=== PATIENT | female | born 1960 | race Caucasian/White ===

== ENCOUNTER 2021-03-06 12:43 | Outpatient (REF) | payer OTHER, SELFPAY ==
[2021-03-06 13:52] LABS: Alanine Aminotransferase 27 U/L (0-31); Albumin Level 4.8 g/dL (3.5-5.0); Alkaline Phosphatase 70 U/L (39-117); Aspartate Amino Transferase 25 U/L (5-31); Bilirubin Direct < 0.2 mg/dL (0.0-0.5); Bilirubin Total 0.3 mg/dL (0.0-1.0); Lipase 39 U/L (8-78)
[2021-03-06 13:54] LABS: Amylase 57 U/L (28-100)
[2021-03-08 13:46] LABS: Immunoglobulin A 59 mg/dL (47-310)
[2021-03-08 16:31] LABS: Transglutaminase Ab IgG <1.0 U/mL; Transglutaminase IgA <1.0 U/mL
[2021-03-09 06:46] LABS: Gliadin Deamidated IgG Ab <1.0 U/mL
[2021-03-10 10:00] LABS: Carbohydrate Antigen 19-9 12 U/mL (<34)
[2021-03-13 12:32] LABS: Endomysial IgA Antibody Negative (Negative)
== END 2021-03-06 12:44 | disposition home or self-care (01) ==
LOC: HO.LAB 12:43
PROVIDERS: PCP Family Medicine; Visit Provider Internal Medicine
DX: K86.2 Cyst of pancreas (principal); K58.8 Other irritable bowel syndrome
CPT/HCPCS: 36415; 80076; 82150; 82784; 83690; 86231; 86258; 86301; 86364

== ENCOUNTER 2024-10-25 11:58 | Emergency (ER) | payer OTHER, SELFPAY ==
--- NOTE | ~2024-10-25 | US_ITS ---
CLINICAL HISTORY: Left thigh pain. DVT? Venous duplex ultrasound left lower extremity Comparison: None provided Findings: The visualized deep veins are fully compressible with normal Doppler color flow and spectral tracings. No popliteal cyst. IMPRESSION: 1. Negative for left lower extremity deep vein thrombosis. This document has been electronically signed by: Deep Hzd DO on 10/25/2024 14:09:08
--- NOTE | ~2024-10-25 | XR_ITS ---
CLINICAL HISTORY: left hip thigh pain 3 view, pelvis and left hip Comparison: None provided Findings: No acute fracture or dislocation. Mild degenerative changes of both hips. The soft tissues are unremarkable. IMPRESSION: Mild degenerative changes of both hips. This document has been electronically signed by: Deep Hdz DO on 10/25/2024 13:47:13
[2024-10-25 12:10] VITALS: BP 153/77; PULSE 76; RESP 20; TEMP 37.1; O2SAT 98; BMI 24.4
--- NOTE | 2024-10-25 12:14 | ED.GENADULT ---
HPI - General Adult General Chief complaint: Extremity Injury, Lower Stated complaint: groin pain into l leg Time Seen by Provider: 10/25/24 12:34 Source: patient Mode of arrival: ambulatory Limitations: no limitations History of Present Illness ED Provider: HPI narrative: 64-year-old woman, healthy presenting with left-sided hip pain for the last 4 days started with exercise, she is otherwise very active, no fevers or chills, pain radiating into her thigh. No swelling. Related Data Allergies Allergy/AdvReac Type Severity Reaction Status Date / Time levofloxacin (From LEVAQUIN) Allergy Unknown RASH Unverified 10/25/24 12:15 sulfamethoxazole (From Allergy Heartburn Verified 10/25/24 12:15 Bactrim) trimethoprim (From Bactrim) Allergy Heartburn Verified 10/25/24 12:15 Review of Systems Constitutional: Constitutional: Reports as per [facility] Social History Social History (System 02/21/21 @ 08:58 by Aurea Rhoades) Smoked in Last 30 Days: No Use of substances other than those prescribed or required for medical reasons: Yes Substance Use Type: Marijuana Advance Directives: No Advance Directives Information Provided: No Physical Exam ED Vital Signs: Vital Signs - 24 hr 10/25/24 12:10 10/25/24 13:47 Temperature 98.7 F Pulse Rate 76 80 Respiratory Rate 20 18 Blood Pressure 153/77 H 133/63 Pulse Oximetry 98 96 Oxygen Delivery Method Room Air Room Air BMI result Body Mass Index 24.4 Const Other: Gen: ?Overall well-appearing patient Resp: ?No wheezing rales rhonchi no stridor moving air well Abd: ?Bowel sounds are present, no tenderness no rebound no rigidity MSK: FROM, strength 5/5 all extremities, no lower extremity edema, distal pulses intact Skin: Warm, dry, intact, Neuro: ?Alert and oriented x3, moving upper and lower extremities symmetrically, no obvious facial asymmetry noted Course Course Course Narrative: RME: 64 yold female presents to the ED for left hip/thigh/groin pain for the past 4 days. Patient states walking a lot and now having hip thigh pain that is worse on movement. Patient denies any recent blunt trauma, swelling, dysuria, hematuria, flank pain, fever, chills, back pain abdominal pain nausea or vomiting. Labs imaging ultrasound ordered Medical Decision Making Medical Decision Making [facility] Narrative: Patient is very active, presenting with left-sided hip pain exercises quite a bit for many years, physical examination otherwise reassuring, she had an ultrasound done to evaluate for any presence of any DVT, x-ray on my evaluation reveals early arthritic changes bilaterally Differential Diagnosis Differential Diagnoses: The differential diagnosis associated with the presentation includes (Bursitis, arthritis, fracture, DVT, cellulitis) Lab Data [facility] Lab Attestation statement: I reviewed the patient's lab results. 10/25/24 12:19 10/25/24 12:19 Labs: Lab Results 10/25/24 10/25/24 Range/Units 12:19 14:25 WBC 6.3 (4.8-10.8) X10*3/uL RBC 4.50 (4.20-5.50) X10*6/uL Hgb 13.7 (12.0-16.0) g/dl Hct 41.2 (37.0-47.0) % MCV 91.6 (80.0-98.0) fL MCH 30.4 (27.0-33.0) pg MCHC 33.3 (31.0-35.0) g/dl RDW 12.3 (11.0-16.0) % Plt Count 217 (160-400) X10*3/uL MPV 10.1 (9.4-12.3) fL Immature Gran % (Auto) 0.2 (0.0-0.4) % Neut % (Auto) 58.9 (45-73) % Lymph % (Auto) 26.8 (20-40) % Josephine % (Auto) 10.0 (2-11) % Eos % (Auto) 2.7 (0-4) % Baso % (Auto) 1.4 (0-2) % Lymph # (Auto) 1.7 (1.2-4.9) X10*3/uL Josephine # (Auto) 0.6 (0.1-1.2) X10*3/uL Eos # (Auto) 0.2 (0.0-0.4) X10*3/uL Baso # (Auto) 0.1 (0.0-0.2) X10*3/uL Abs Immat Gran (auto) 0.01 (0.00-0.03) X10*3/uL Absolute Neuts (auto) 3.7 (2.0-8.3) x10*3/uL Absolute Nucleated RBC 0.000 (0.0-0.012) X10*3/uL Nucleated RBC % (auto) 0.0 (0.0-0.2) /100WBC Sodium 144 (135-145) mmol/L Potassium 3.4 (3.3-5.1) mmol/L Chloride 107 (96-108) mmol/L Carbon Dioxide 29 (22-29) mmol/L Anion Gap 11 L (12-20) BUN 18 H (9-16) mg/dL Creatinine 0.83 (0.5-1.4) mg/dL Estim Creat Clear Calc 72.4 Estimated GFR > 60 Random Glucose 76 (60-115) mg/dL Calcium 9.4 (8.4-10.2) mg/dL Total Bilirubin 0.4 (0.0-1.0) mg/dL AST 21 (5-31) U/L ALT 16 (0-31) U/L Alkaline Phosphatase 85 (39-117) U/L Total Creatine Kinase 114 (26-140) U/L Total Protein 6.8 (6.5-8.0) g/dL Albumin 4.6 (3.5-5.0) g/dL Urine Color Yellow Urine Appearance Clear Urine pH 7.5 (5.0-9.0) Ur Specific [place] <= 1.005 (1.005-1.025) Urine Protein Negative (Neg-Trace) mg/dL Urine Glucose (UA) Negative (Negative) mg/dL Urine Ketones Negative (Negative) mg/dL Urine Blood Negative (Negative) Urine Nitrite Negative (Negative) Ur Leukocyte Esterase Trace H (Negative) Urine RBC 0-2 (0-2) /HPF Urine WBC 0-5 (0-5) /HPF Ur Squamous Epith Cells 0-2 (0-2) /HPF Urine Bacteria None Seen (None Seen) Hyaline Casts 0-2 (0-2) /LPF Independent Interpretation I performed an independent interpretation of an: Plain X-Ray (Some loss of joint space, sclerosing, early arthritic changes bilaterally) Radiology Impression Discussion of test interpretation with radiology: I have reviewed the radiologist's reading. (. Negative for left lower extremity deep vein thrombosis.) Discharge Plan Discharge Clinical Impression: Hip pain, left, Arthritis of left hip Patient Disposition: Home, Self-Care Additional Instructions: Mild arthritic changes bilaterally in your hips, ultrasound negative for blood clots we discussed various homeopathic approaches to this issue. Interventions: ED Discharge Assessment Last Done: 10/25/24 14:48 Discharge Date/Time: 10/25/24 14:49 Print Language: Malawian
[2024-10-25 12:24] LABS: MANUAL DIFF FLAG NO
[2024-10-25 12:25] LABS: Hematocrit 41.2 % (37.0-47.0); Hemoglobin 13.7 g/dl (12.0-16.0); Imm Gran Abs Auto 0.01 X10*3/uL (0.00-0.03); Imm Gran Pct Auto 0.2 % (0.0-0.4); Lymphocytes Absolute Auto 1.7 X10*3/uL (1.2-4.9); Mean Corpuscular HGB Conc 33.3 g/dl (31.0-35.0); Mean Corpuscular Hemoglobin 30.4 pg (27.0-33.0); Mean Corpuscular Volume 91.6 fL (80.0-98.0); NRBC Abs Auto 0.000 X10*3/uL (0.0-0.012); NRBC Pct Auto 0.0 /100WBC (0.0-0.2); Platelet Count 217 X10*3/uL (160-400); Red Blood Count 4.50 X10*6/uL (4.20-5.50); White Blood Count 6.3 X10*3/uL (4.8-10.8)
--- OUTSIDE RECORDS SUMMARY | 2024-10-25 12:31 | XMS_ITS | Patient Health Record ---
Author Organization [facility] Address [address] [place] [id number] Care Team Providers Care Acid Conditioner Name Role Phone Leena West APRN Primary Care Provider [phone] Genet Alejo Unavailable [phone] Allergies Allergen (clinical drug ingredient) Drug/Non Drug Allergy documented on EMR Reaction Allergy Type Onset Date Status dust mites, grass, dogs, cats, mold, lobster (uncoded) asthma, watery eyes, runny nose Allergy Active Reason For Referral No Information Problems Problem Type SNOMED Code ICD Code Onset Dates Problem Status W/U Status Risk Notes Problem Vitamin D deficiency (65033155) Vitamin D deficiency, unspecified (E55.9) Active confirmed Problem Vitamin deficiency (42607561) Vitamin deficiency, unspecified (E56.9) Active confirmed Problem Generalized anxiety disorder (18129400) Generalized anxiety disorder (F41.1) Active confirmed Problem Insomnia (097537646) Insomnia, unspecified (G47.00) Active confirmed Problem Dental caries (33904546) Dental caries, unspecified (K02.9) Active confirmed Problem Myalgia (81354454) Myalgia (M79.1) Active confirmed Problem Pain in limb (99056268) Pain in arm, unspecified (M79.603) Active confirmed Problem Pain in limb (36208088) Pain in leg, unspecified (M79.606) Active confirmed Problem Menopause (782718977) Menopausal and female climacteric states (N95.1) Active confirmed Problem Chest pain (42619463) Other chest pain (R07.89) Active confirmed Problem Headache (15106320) Headache (R51) Active confirmed Problem Fatigue (39073006) Other fatigue (R53.83) Active confirmed Problem Jaw pain (689148168) Jaw pain (R68.84) Active confirmed Problem Irritable bowel syndrome (51642004) Mixed irritable bowel syndrome (K58.2) Active confirmed Plan Of Treatment Pending Test Test Name Order Date THYROID PEROXIDASE AND THYROGLOBULIN ANT IBODIES 10/01/2017 GGT 10/01/2017 CBC (H/H, RBC, INDICES, WBC, PLT) 2017 LYME DISEASE ANTIBODIES (IGG,IGM), IMMUN OBLOT 10/01/2017 CHANELL IFA SCREEN W/REFL TO TITER AND RICARDO VIRGEN, IFA 10/01/2017 HS CRP 10/01/2017 DHEA SULFATE 10/01/2017 T4, FREE 10/01/2017 TSH 10/01/2017 T3, FREE 10/01/2017 SEX HORMONE BINDING GLOBULIN 10/01/2017 TESTOSTERONE, FREE,BIO AND TOTAL, LC/MS/ MS 10/01/2017 PREGNENOLONE, LC/MS/MS 10/01/2017 CBC WITH AUTOMATED DIFF 10/08/2017 Medical (General) History Medical History History ICD Code Opioid addiction Chronic mouth pain Joint pain Headaches asthma-triggered by allergie s; rarely uses inhaler; denies past hospitalization 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
--- OUTSIDE RECORDS SUMMARY | 2024-10-25 12:31 | XMS_ITS | Clinical Summary ---
Author Organization [facility] Address [address] [place] [address] Phone Care Team Providers Care Bit Sander Name Role Phone Leandra Gonzalez Primary Care Provider [phone] Allergies Active Allergy Reactions Criticality Noted Date Comments Sulfamethoxazole-Trimethoprim Palpitations Low 06/25 Cyclobenzaprine 08/19/2024 Gemfibrozil 08/19/2024 Hydroxyzine 08/19/2024 Levofloxacin 03/03/2017 Niacin Rash Low 08/19/2024 Medications No known medications Active Problems Problem Noted Date Diagnosed Date Jaw pain 07/13/2020 Assessment & Plan (07/13/2020 11:52 AM EDT): It is unclear why patient is here. The patient was sent by her primary care physician (I thought) at the patient's request for question of actinomycosis. She brought no x-rays or x-ray reports, no reports from a dentist, and the DNA connect report that she brought is not a test that I am familiar with. The patient walked out during our visit, frustrated that I was not familiar with the report that she brought. In addition the jaw pain that she had complained of for many years she now says is minimal. Of note is the fact that actinomycese is part of normal mouth jarret and is only considered problematic if associated with abscess or other deep and chronic infections. Although I was not able to complete our visit or perform an oral exam, given that she no longer has jaw pain, I think serious actinmycotic infection is very unlikely. Encounters Date Type Department Care Team Description 08/19/2024 2:50 PM EDT Office Visit [facility] [address] [address] Carey Ruvalcaba FNP Infection, wound status post trauma (Primary Dx) from Last 3 Months Immunizations Immunization Administration Dates Next Due INFLUENZA, SPLIT VIRUS, TRIVALENT W/ PRESERVATIV E IM 12/13/2013 Social History Tobacco Use Types Packs/Day Years Used Date Smoking Tobacco: Every Day Smokeless Tobacco: Never Alcohol Use Standard Drinks/Week Comments No 0 (1 standard drink = 0.6 oz pur e alcohol) Education Answer Date Recorded Are you interested in more education? Not on aura e 06/21/2022 Are you concerned about learning? Not on file 06/21/2022 No 06/21/2022 No 06/21/2022 Digital Access Answer Date Recorded No 07/22/2022 No 07/22/2022 Reliable internet access at home? Not on file 07/22/2022 Device with a working camera? Not on file Comments No Sex and Gender Information Value Date Recorded Sex Assigned at Female 03/23/2017 1:36 PM EST Legal Sex Female 9:46 PM EDT Gender Identity Female 03/23/2017 1:36 PM EST Sexual Orientation Straight 03/23/2017 1: 36 PM EST Last Filed Vital Signs Vital Sign [place] Time Taken Comments Blood Pressure 129/72 08/19/2024 3:00 PM EDT Pulse 59 08/19/2024 3:00 PM EDT Temperature 36.8 C (98.3 F) 08/19/2024 3:00 PM EDT Respiratory Rate 16 08/19/2024 3:00 PM EDT Oxygen Saturation 97% 08/19/2024 3:00 PM EDT Inhaled Oxygen Concentration - - Weight 74.8 kg (165 lb) 01/14/2021 9:34 AM EST Height 167.6 cm (5' 6 ) 01/14/2021 9:34 AM EST Body Mass Index 26.63 01/14/2021 9:34 AM EST Plan of Treatment Health Maintenance Due Date Last Done Comments Adult Td,Tdap Booster 1961 DEPRESSION SCREENING 1973 SMOKING Hx and SMOKELESS TOB ACCO SCREENING 1974 HEPATITIS C SCREENING 1979 HIV ONE-TIME SCREENING (18-6 5 YEARS) 1979 PNEUMOCOCCAL VACCINES (50+ y ears) (1 of 2 - PCV) 1980 PAP SMEAR 1982 MAMMOGRAM 2001 COLOGUARD 2006 COLONOSCOPY 2006 COLORECTAL CANCER SCREENING 2006 FIT TEST 2006 FOBT 2006 SIGMOIDOSCOPY 2006 VIRTUAL COLONOSCOPY 2006 ZOSTER VACCINES (1 of 2) 2011 COVID-19 VACCINE (1 - 2023-2 5 season) 2023 LIPID PANEL 06/03/2025 06/03/2020 RSV VACCINE (1 - 1-dose 75+ series) 2036 HEPATITIS A VACCINES Aged Out No long er eligible based on patient's age to complete this topic HIB VACCINES Aged Out No longer eligi ble based on patient's age to complete this topic MENINGOCOCCAL VACCINES (ACWY) Aged Out No longer eligible based on patient's age to complete this topic MENINGOCOCCAL VACCINES (B) Aged Out N o longer eligible based on patient's age to complete this topic Medical Devices Not on file Procedures Procedure Name Priority Date/Time Associated Diagnosis Comments LIPID PANEL Routine 06/03/2020 11:48 AM EDT Actinomycosis, unspecified Diarrhea, unspecified type from Last 3 Months or Most Recently Relevant to Health Maintenance Results * (ABNORMAL) Lipid panel (06/03/2020 11:48 AM EDT) HDL 67 mg/dL [facility] Comment: Interpretation <40 mg/dL: Low HDL cholesterol (major risk factor for CHD) Greater than or equal to 60 mg/dL: High HDL cholesterol ( negative risk factor for CHD) HDL - cholesterol is affected by a number of factors, e.g. smoking, excerise, hormones, sex and age. CHOLESTEROL 212 0 - 240 mg/dL [facility] TRIGLYCERIDES 82 30 - 160 mg/dL [facility] LDL 129 50 - 129 mg/dL [facility] Comment: LDL levels in terms of risk for coronary heart disease: <100 mg/dL: Optimal 100-129 mg/dL: Near or above optimal 130-159 mg/dL: Borderline high 160-189 mg/dL: High >190 mg/dL: Very High CARDIAC RISK RATIO 3.2(L) 3.3 - 4.4 C [facility] Blood 06/03/2020 11:4 8 AM EDT 06/03/2020 11:58 AM EDT Joseph Bhandari MD LAB BLOOD ORDERABLES Final Result [facility] [address] [place] [address] from Last 3 Months or Most Recently Relevant to Health Maintenance Insurance [facility] Member Subscriber Plan / Payer (Ef fective 2016-Present) Name:Selene Solomon Relation to Subscriber:Spouse Name:COOPER SOLOMONREY Date of :1900 (Home) Address: [address] [place] [id number] Payer ID:Not on file Type:HMO Address: [address] [id number] [place], [place] [address] [facility] [id number] [place], [place] [address] Member Subscriber Plan / Payer (Ef fective 2016-Present) Name:Selene Solomon Relation to Subscriber:Spouse Name:RAHAT SOLOMON Date of :1900 (Home) Address: [address] [place], [place] [id number] Payer ID:Not on file Type:HMO Address: [address] [facility] [id number] [place], [place] [address] Member Subscriber Plan / Payer (Ef fective 2016-Present) Name:Selene Solomon Relation to Subscriber:Spouse Name:RAHAT SOLOMON Date of :1900 (Home) Address: [address] [place] [address] Payer ID:Not on file Type:HMO Address: [address] [facility] Member Subscriber Plan / Payer (Ef fective 2016-Present) Name:Selene Solomon Relation to Subscriber:Spouse Name:RAHAT SOLOMON Date of :1900 (Home) Address: [address] [place] [id number] Payer ID:Not on file Type:HMO Address: [address] [facility] Member Subscriber Plan / Payer (Ef fective 2016-Present) Name:Selene Solomon Relation to Subscriber:Spouse Name:RAHAT SOLOMON Date of :1900 (Home) Address: [address] [place] [id number] Payer ID:Not on file Type:HMO Address: [address] Care Teams Bit Sander Relationship Specialty Start Date End Date Leandra Gonzalez PA [address] [place] [address] (work) [email or web address] PCP - General Physician Front Counter Clerk 08/19/24 Additional Source Comments The information contained in this document represents components of the legal health record. It is not the complete legal health record.[facility]
--- OUTSIDE RECORDS SUMMARY | 2024-10-25 12:31 | XMS_ITS | Encounter Summary ---
Author Organization [facility] Address [address] [facility] [address] [place] [phone] Phone Care Team Providers Care Big Data Admin Name Role Phone Andrew Lopes MD Primary Care Provider [phone] Renaldo Gray DO Primary Care Provider [phone] Joseph Bhandrai MD Primary Care Provider [phone] Marco A Ortega MD Primary Care Provide r Leandra Gonzalez Primary Care Provider [phone] Encounter Details Date Type Department Care Team (Late st Contact Info) Description 10/12/2019 Procedure [facility], [address] [address] Social History Tobacco Use Types Packs/Day Years Used Date Smoking Tobacco: Every Day Smokeless Tobacco: Never Alcohol Use Standard Drinks/Week Comments No 0 (1 standard drink = 0.6 oz pur e alcohol) Comments Unknown Sex and Gender Information Value Date Recorded Sex Assigned at Female 03/23/2017 1:36 PM EST Legal Sex Female 9:46 PM EDT Gender Identity Female 03/23/2017 1:36 PM EST Sexual Orientation Straight 03/23/2017 1: 36 PM EST documented as of this encounter Last Filed Vital Signs Vital Sign [place] Time Taken Comments Blood Pressure - - Pulse - - Temperature - - Respiratory Rate - - Oxygen Saturation - - Inhaled Oxygen Concentration - - Weight 64.9 kg (143 lb) 10/14/2019 5:08 PM EDT Height 170.2 cm (5' 7 ) 10/14/2019 5:08 PM EDT Body Mass Index 22.4 10/14/2019 5:08 PM EDT documented in this encounter Plan of Treatment Not on file documented as of this encounter Visit Diagnoses Not on filedocumented in this encounter Care Teams Big Data Admin Relationship Specialty Start Date [place] [address] [email or web address] PCP - General Internal Medicine 11/26/18 10/12/19 Renaldo Gray DO [address] [place] [id number] [email or web address] PCP - General Family Medicine 10/13/19 05/31/20 Joseph Bhandari MD [address] [address] [email or web address] PCP - General 06/01/20 10/24/20 Marco A Ortega MD [address] [address] PCP - General Family Medicine 10/25/20 08/18/24 Leandra Gonzalez PA [address] [place] [email or web address] PCP - General Physician Care Clinician 08/19/24 documented as of this encounter Additional Source Comments The information contained in this document represents components of the legal health record. It is not the complete legal health record.[facility]
--- OUTSIDE RECORDS SUMMARY | 2024-10-25 12:31 | XMS_ITS | Encounter Summary ---
Author Organization [facility] Address [address] [facility] [address] [place] [phone] Phone Care Team Providers Care Load Tallier Name Role Phone Marco A Ortega MD Primary Care Provide r Leandra Gonzalez Primary Care Provider [phone] Encounter Details Date Type Department Care Team (Late st Contact Info) Description 01/16/2021 Ancillary Orders [facility],Outside Imaging [address] [place] [address] System, Provider Not In, [facility] [address] [address] Social History Tobacco Use Types Packs/Day Years [...] PM EST documented as of this encounter Plan of Treatment Not on file documented as of this encounter Results * CT Abdomen/Pelvis Outside (No Interpretation) (11/08/2020 12:00 AM EDT) Narrative SYSTEMGENERATED, DOCUMENTATION - 01/16/2021 7:15 AM EST This study is for PACS storage only and not for interpretation. us Provider Not In System PhD IMG OUTSIDE IMAGING W /OUT INTERPRETATION Final Result documented in this encounter Visit Diagnoses Not on filedocumented in this encounter Care Teams Load Tallier Relationship Specialty Start Date End Date Marco A Ortega MD [address] [address] PCP - General Family Medicine 10/25/20 08/18/24 Leandra Gonzalez PA [address] [place] [phone] [email or web address] PCP - General Physician Waste Disposal Attendant 08/19/24 documented as of this encounter Additional Source Comments The information contained in this document represents components of the legal health record. It is not the complete legal health record.[facility]
--- OUTSIDE RECORDS SUMMARY | 2024-10-25 12:31 | XMS_ITS | Encounter Summary ---
Author Organization [facility] Address [address] [facility] [address] [place] [address] Phone Care Team Providers Care Shop Girl Name Role Phone Andrew Lopes MD Primary Care Provider [phone] Andrew Lopes MD Primary Care Provider [phone] Renaldo Gray DO Primary Care Provider [phone] Joseph Bhandari MD Primary Care Provider [phone]- [phone] Marco A Ortega MD Primary Care Provide r Leandra Gonzalez Primary Care Provider [phone] Reason for Referral * MRI/CAT Scan - Closed Specialty Diagnoses / Procedures Referred By Contairam gunn Referred To Contact Radiology Diagnoses Atheroma Intractable migraine without status migrainosus, unspecified migraine type Seizures Procedures MRI Angio Brain Gilberto Enriquez MD Phone: tel: fax: mailto:[email or web address] Referral ID Status Reason Start Date Expiration Date Visits Re quested Visits Authorized [id number] Closed 05/06/2017 07/05/2017 1 1 Encounter Details Date Type Department Care Team (Late st Contact Info) Description 05/06/2017 Ancillary Orders [facility] Department [address] [place] [address] Gilberto Enriquez MD [address] [place] [address], [address] [place] [address] [email or web address] Atheroma; Intractable migraine without status migrainosus, unspecified migraine type; Seizures Social History Tobacco Use Types Packs/Day Years [...] documented as of this encounter Results * MRA HEAD WITHOUT CONTRAST (05/15/2017 7:26 PM EDT) Anatomical Region Laterality Modality Head Magnetic Resonan ce 05/15/2017 8:31 PM EDT Impressions 05/15/2017 8:37 PM EDT No aneurysm detected. No significant narrowing. POS - [id number] Narrative 05/15/2017 8:37 PM EDT HISTORY: As above. COMPARISON: None TECHNIQUE: Exam performed on 1.5 Nisa high-field MRI scanner. Axial 3-D [id number] MR angiogram. Source raw data and angiographic MIP images are available for review. FINDINGS: Anterior and posterior circulations are patent. No evidence of hemodynamically significant narrowing or aneurysm. Left vertebral artery is dominant. Procedure Note Jeffrey Bhakta MD - 05/15/2017 HISTORY: As above. COMPARISON: None TECHNIQUE: Exam performed on 1.5 Nisa high-field MRI scanner. Axial 0-Kqbnl-ft-flight MR angiogram. Source raw data and angiographic MIP imagesare available for review. FINDINGS: Anterior and posterior circulations are patent. No evidence ofhemodynamically significant narrowing or aneurysm. Left vertebral arteryis dominant. IMPRESSION: No aneurysm detected. No significant narrowing. POS - [id number] Gilberto Enriquez MD IMG MR HEAD/NECK Final Resul t documented in this encounter Visit Diagnoses Diagnosis Atheroma Generalized and unspecified atherosclerosis Intractable migraine without status migrainosus, unspecified migraine type Seizures Other convulsions Atheroma Generalized and unspecified atherosclerosis Intractable migraine without status migrainosus, unspecified migraine type Seizures Other convulsions documented in this encounter Care Teams Shop Girl Relationship Specialty Start Date [place] [address] [email or web address] PCP - General Internal Medicine 03/03/17 11/25/18 [place] [address] [email or web address] PCP - General Internal Medicine 11/26/18 10/12/19 Renaldo Gray DO [address] [place] [address] [email or web address] PCP - General Family Medicine 10/13/19 05/31/20 Joseph Bhandari MD [address] [address] [email or web address] PCP - General 06/01/20 10/24/20 Marco A Ortega MD [address] [address] PCP - General Family Medicine 10/25/20 08/18/24 Leandra Gonzalez PA [address] [place] [address] [email or web address] PCP - General Physician Visual Education Director 08/19/24 documented as of this encounter Additional Source Comments The information contained in this document represents components of the legal health record. It is not the complete legal health record.[facility]
--- OUTSIDE RECORDS SUMMARY | 2024-10-25 12:31 | XMS_ITS | Encounter Summary ---
Author Organization [facility] Address [address] [facility] [address] [place] [address] Phone Care Team Providers Care Special Education Educational Assistant Name Role Phone Andrew Lopes MD Primary Care Provider Andrew Lopes MD Primary Care Provider Renalod Gray DO Primary Care Provider [phone] Joseph Bhandari MD Primary Care Provider + [phone] Marco A Ortega MD Primary Care Provide r Leandra Gonzalez Primary Care Provider [phone] Encounter Details Date Type Department Care Team (Late st Contact Info) Description 03/05/2017 Community Orders [facility] Brii Watkins, STILL OPERATOR WH[place] [address] [place] [address] Social History Tobacco Use Types Packs/Day Years [...] on filedocumented in this encounter Care Teams Special Education Educational Assistant Relationship Specialty Start Date [place] [address] [email or web address] PCP - General Internal Medicine 03/03/17 11/25/18 [place] [address] [email or web address] PCP - General Internal Medicine 11/26/18 10/12/19 Renaldo Gray DO [address] [place] [address] [email or web address] PCP - General Family Medicine 10/13/19 05/31/20 Joseph Bhandari MD [address] [place] [address] [email or web address] PCP - General 06/01/20 10/24/20 Marco A Ortega MD [address] [address] PCP - General Family Medicine 10/25/20 08/18/24 Leandra Gonzalez PA [address] [place] [address] [email or web address] PCP - General Physician It Infrastructure Project Manager 08/19/24 documented as of this encounter Additional Source Comments The information contained in this document represents components of the legal health record. It is not the complete legal health record.[facility]
--- OUTSIDE RECORDS SUMMARY | 2024-10-25 12:31 | XMS_ITS | Encounter Summary ---
Author Organization [facility] Address [address] [facility] [address] [place] [address] Phone Care Team Providers Care Support Worker Name Role Phone Andrew Lopes MD Primary Care Provider [phone] Andrew Lopes MD Primary Care Provider [phone] Renaldo Gray DO Primary Care Provider [phone] Joseph Bhandari MD Primary Care Provider [phone] Marco A Ortega MD Primary Care Provide r Leandra Gonzalez Primary Care Provider Encounter Details Date Type Department Care Team (Latest Contact Info) Description 03/10/[address] [facility] Laboratory [address] [place] [address] Gilberto Enriquez MD [address] [address], [address] [place] [address] [email or web address] Acute nonintractable headache, unspecified headache type (Primary Dx) Social History Tobacco Use Types Packs/Day Years [...] documented as of this encounter Results * Ceruloplasmin (03/10/2017 12:44 PM EST) CERULOPLASMIN,S 27.7 20.0 - 51.0 mg/dL [facility] DPT OF LAB MED AND PAT+ Blood 03/10/2017 12:4 4 PM EST 03/10/2017 12:48 PM EST us Gilberto Enriquez MD LAB BLOOD ORDERABLES Final R esult [facility] DPT OF LAB MED AND PAT+ [address] [place] [address] * Sedimentation rate (ESR) (03/10/2017 12:44 PM EST) ESR 2 0 - 30 mm/h [facility] Blood 03/10/2017 12:4 4 PM EST 03/10/2017 12:48 PM EST us Gilberto Enriquez MD LAB BLOOD ORDERABLES Final R esult Performing Organization Address City/[facility]/ZIP Co de Phone Number [address] [address] documented in this encounter Visit Diagnoses Diagnosis Acute nonintractable headache, unspecified headache type- Primary documented in this encounter Care Teams Support Worker Relationship Specialty Start Date End [place] [address] PCP - General Internal Medicine 03/03/17 11/25/18 [place] [address] PCP - General Internal Medicine 11/26/18 10/12/19 Renaldo Gray DO [address] [place] [address] [email or web address] PCP - General Family Medicine 10/13/19 05/31/20 Joseph Bhandari MD [address] [facility] [address] [place] [address] [email or web address] PCP - General 06/01/20 10/24/20 [place] [address] [place] [address] [address] PCP - General Family Medicine 10/25/20 08/18/24 Leandra Gonzalez PA [address] [place] [phone] [email or web address] PCP - General Physician Senior Grants Officer 08/19/24 documented as of this encounter Additional Source Comments The information contained in this document represents components of the legal health record. It is not the complete legal health record.[facility]
--- OUTSIDE RECORDS SUMMARY | 2024-10-25 12:31 | XMS_ITS | Encounter Summary ---
Author Organization [facility] Address [address] [facility] [address] [place] [address] Phone Care Team Providers Care Courtesy Van Driver Name Role Phone Andrew Lopes MD Primary Care Provider [phone] Andrew Lopes MD Primary Care Provider [phone] Renaldo Gray DO Primary Care Provider [phone] Joseph Bhandari MD Primary Care Provider + [phone] Marco A Ortega MD Primary Care Provide r Leandra Gonzalez Primary Care Provider [phone] Encounter Details Date Type Department Care Team (Late st Contact Info) Description 04/30/2017 Procedure Pass [facility], [address] [address] Social History Tobacco Use Types Packs/Day Years [...] on filedocumented in this encounter Care Teams Courtesy Van Driver Relationship Specialty Start Date End [place] [address] [email or web address] PCP - General Internal Medicine 03/03/17 11/25/18 [place] [address] [email or web address] PCP - General Internal Medicine 11/26/18 10/12/19 Renaldo Gray DO [address] [place] [address] [email or web address] PCP - General Family Medicine 10/13/19 05/31/20 Joseph Bhandari MD [address] [address] [email or web address] PCP - General 06/01/20 10/24/20 [place] [address] [address] PCP - General Family Medicine 10/25/20 08/18/24 Leandra Gonzalez PA [address] [place] [address] [email or web address] PCP - General Physician Print Operator 08/19/24 documented as of this encounter Additional Source Comments The information contained in this document represents components of the legal health record. It is not the complete legal health record.[facility]
--- OUTSIDE RECORDS SUMMARY | 2024-10-25 12:31 | XMS_ITS | Encounter Summary ---
Author Organization [facility] Address [address] [facility] [address] [place] [address] Phone Care Team Providers Care Front Sight Attacher Name Role Phone Andrew Lopes MD Primary Care Provider Andrew Lopes MD Primary Care Provider Renaldo Gray DO Primary Care Provider [phone] Joseph Bhandari MD Primary Care Provider [phone] Marco A Ortega MD Primary Care Provide r Leandra Gonzalez Primary Care Provider [phone] Encounter Details Date Type Department Care Team (Late st Contact Info) Description 03/10/2017 Ancillary Orders Virtual Department [address] [place] [address] Gilberto Enriquez MD [address] [place] [address], [address] [place] [address] [email or web address] Transient cerebral ischemia, unspecified type Social History Tobacco Use Types Packs/Day Years [...] documented as of this encounter Results * US Carotid Duplex (Bilateral) (04/29/2017 1:19 PM EST) Anatomical Region Laterality Modality Heart, Thoracic Vasculature, Neck Ultrasound 04/29/2017 1:26 PM EST Impressions 04/29/2017 1:28 PM EST No evidence of hemodynamically significant internal carotid stenoses. Patent vertebral arteries. POS - [id number] Narrative 04/29/2017 1:28 PM EST HISTORY: See above. COMPARISON: None CAROTID ULTRASOUND FINDINGS: RIGHT: Peak external carotid artery: 120 cm/sec Peak vertebral: 46 cm/sec and antegrade Carotid artery morphology: Small amount of mixed plaque in the bulb. Degree of luminal narrowing is less than 50%. Peak systolic and diastolic velocity common carotid artery: 100/36 cm/sec Peak systolic and diastolic velocity internal carotid artery: 120/46 cm/sec Normal peak systolic and end diastolic ratios. LEFT: Peak external carotid artery: 110 cm/sec Peak vertebral: 68 cm/sec and antegrade Carotid artery morphology: Minimal soft plaque in the bulb. Degree of luminal narrowing is less than 50%. Peak systolic and diastolic velocity common carotid artery: 90/32 cm/sec Peak systolic and diastolic velocity internal carotid artery: 97/36 cm/sec Normal peak systolic and end diastolic ratios. Any stenosis measurement is relative to the distal ICA diameters. Procedure Note Jeffrey Bhakta MD - 04/29/2017 HISTORY: See above. COMPARISON: None CAROTID ULTRASOUND FINDINGS: RIGHT: Peak external carotid artery: 120 cm/sec Peak vertebral: 46 cm/sec and antegrade Carotid artery morphology: Small amount of mixed plaque in the bulb.Degree of luminal narrowing is less than 50%. Peak systolic and diastolic velocity common carotid artery: 100/36cm/sec Peak systolic and diastolic velocity internal carotid artery: 120/46cm/sec Normal peak systolic and end diastolic ratios. LEFT: Peak external carotid artery: 110 cm/sec Peak vertebral: 68 cm/sec and antegrade Carotid artery morphology: Minimal soft plaque in the bulb. Degree ofluminal narrowing is less than 50%. Peak systolic and diastolic velocity common carotid artery: 90/32 cm/sec Peak systolic and diastolic velocity internal carotid artery: 97/36cm/sec Normal peak systolic and end diastolic ratios. Any stenosis measurement is relative to the distal ICA diameters. IMPRESSION: No evidence of hemodynamically significant internal carotid stenoses.Patent vertebral arteries. POS - [id number] us Gilberto Enriquez MD CV US NEUROVASCULAR Final Re sult documented in this encounter Visit Diagnoses Diagnosis Transient cerebral ischemia, unspecified type Transient cerebral ischemia, unspecified type documented in this encounter Care Teams Front Sight Attacher Relationship Specialty Start Date [place] [address] [email or web address] PCP - General Internal Medicine 03/03/17 11/25/18 [place] [address] [email or web address] PCP - General Internal Medicine 11/26/18 10/12/19 Renaldo Gray DO [address] [place] [address] [email or web address] PCP - General Family Medicine 10/13/19 05/31/20 Joseph Bhandari MD [address] [address] [email or web address] PCP - General 06/01/20 10/24/20 Marco A Ortega MD [address] [facility] [address] [place] [address] PCP - General Family Medicine 10/25/20 08/18/24 Leandra Gonzalez PA [address] [place] [phone] [email or web address] PCP - General Physician Equipment Validation Specialist 08/19/24 documented as of this encounter Additional Source Comments The information contained in this document represents components of the legal health record. It is not the complete legal health record.[facility]
--- OUTSIDE RECORDS SUMMARY | 2024-10-25 12:31 | XMS_ITS | Patient Health Record ---
Author Organization [facility] Address [address] [place] [address] Care Team Providers Care Barrel Inspector Name Role Phone Marco A Ortega Primary Care Provider José Miguel Alvares [phone] Allergies Allergen (clinical drug ingredient) Drug/Non Drug Allergy documented on EMR Reaction Allergy Type Onset Date Status Levaquin Unknown Drug Allergy Active Reason For Referral No Information Medications Medication SIG (Take, Route, Fr equency, Duration) Notes Start Date End Date Status Vitamin B Complex Ac tive Fish Oil Active Vitamin D3 Active Magnesium Active Vitamin C Active Immunizations Vaccine Route Administration Date Status Comme nts Influenza Unknown 03/06/2021 Refused Social History Tobacco Use: Social History Observation Description Date Details (start date - stop date) Former Smoker NA - NA Tobacco Use/Smoking Question Answer Notes Patient is a former smoker How long has it been since you last smoked? 1-5 years Alcohol Screen Question Answer Notes Did you have a drink containing alcohol in the p ast year? No Points 0 Interpretation Negative Section Notes: Nonsmoker; no sig alcohol Nonsmoker; no sig alcohol Problems Problem Type SNOMED Code ICD Code Onset Dates Problem Status W/U Status Risk Notes Problem 261695474 Encounter for screening for malignant neoplasm of colon (Z12.11) Active confirmed Problem 94722880 Pancreatic cyst (K86.2) Active confirmed Problem 12089795 Other irritable bowel syndrome (K58.8) Active confirmed Problem 762664196 RUQ pain (R10.11) Active confirmed Problem 122091850 Gastroesophageal reflux disease, unspecified whether esophagitis present (K21.9) Active confirmed Plan Of Treatment Pending Test Test Name Order Date LIVER PROFILE 03/06/2021 AMYLASE 03/06/2021 LIPASE 03/06/2021 CELIAC PANEL #10 03/06/2021 CA 19-9 03/06/2021 CA 19-9 07/31/2021 MRI ABD W&WO CONTRAST 07/31/2021 Insurance Providers Payer Name Payer Address Payer Phone Subscriber Number Group Number Insured Name Patient Relationship to Insured Coverage Start Date Coverage End Date [facility] [address] 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 sphincter of Oddi--did not help the abdominal pain Denies [place],DM,CVA,Lung disease,renal dise ase Describes insomnia/anxiety GERD IPMN--CT scan in October described a 3 mm cystic lesion in the tail of the pancreas; A. MRI December 2020 described an approximately 7 mm cystic lesion in the tail of the pancreas as well. Overall this was felt to be very benign and probably related to IPMN. There was no evidence of any solid component to the lesion nor any sign of pancreatic duct involvement. Surgical History Surgery Date(Month/Year) SARAH 2010 Cholecystectomy 1995 Left elbow Dental work as above
--- OUTSIDE RECORDS SUMMARY | 2024-10-25 12:31 | XMS_ITS | Encounter Summary ---
Author Organization [facility] Address [address] [facility] [address] [place] [address] Phone Care Team Providers Care Organic Chemistry Professor Name Role Phone Marco A Ortega MD Primary Care Provide r Leandra Gonzalez Primary Care Provider [phone] Reason for Referral * MRI/CAT Scan - Closed Specialty Diagnoses / Procedures Referred By Benjamin gunn Referred To Contact Radiology Diagnoses Cyst of pancreas Procedures MRI Cholangiopancreatography (MRCP) MRI Abdomen CHG MRI, ABDOMEN, COMBO Marco A Ortega MD [address] [address] Phone: tel: fax: Referral ID Status Reason Start Date Expiration Date Visits Re quested Visits Authorized [id number] Closed 01/03/2021 07/02/2021 1 1 Encounter Details Date Type Department Care Team (Latest Contact Info) Description 01/04/2021 Transcribe Orders Virtual Department [address] [place] [address] Marco A Ortega MD [address] [id number] Cyst of pancreas (Primary Dx) Social History Tobacco Use Types [...] documented as of this encounter Results * MRI CHOLANGIOPANCREATOGRAPHY (MRCP) WITH AND WITHOUT CONTRAST (01/22/2021 8:39 PM EST) Anatomical Region Laterality Modality Pancreas, Biliary Magnetic Reson ance 01/23/2021 8:11 AM EST Impressions 01/23/2021 8:41 AM EST 1. 7 mm bilobed cyst in the tail the pancreas, possibly IPMN. Follow-up initially in 6 months recommended. 2. Left upper pole renal lesion appears to be a proteinaceous cyst. No specific follow-up considered necessary (but can be reevaluated on the follow-up pancreatic MRI). 3. Extrahepatic biliary dilatation very likely due to cholecystectomy rather than obstruction. 4. No other significant upper abdominal pathology. POS [id number] Narrative 01/23/2021 8:41 AM EST TECHNIQUE: 1.5 Nisa scanner. Imaging without and with IV contrast. Compare to CT from [facility] 11/08/2020 FINDINGS: The tail of the pancreas is quite difficult to separate from adjacent colon on many sequences but there does appear to be a 7 mm well-circumscribed, bilobed cystic area in the low distal tail. The main pancreatic duct is so small through the tail that I cannot clearly identify it such that it is unclear if this is a side branch IPMN; there is no pancreatic duct dilatation at any level. No solid pancreatic masses in the area of the cyst or elsewhere. No signs of pancreatitis. Extrahepatic biliary dilatation with the CBD measuring 16 mm as it enters the head of the pancreas is unchanged. The duct tapers abruptly in the region of the junction with the pancreatic duct. No identifiable filling defects. No intrahepatic biliary dilatation; the extrahepatic dilatation is likely reservoir effect postcholecystectomy. The 9 mm circumscribed lesion bulging exophytically from the ventral mid left kidney noted on the CT scan is hyperintense on T1 and T2 and does not appear to enhance significantly. This is almost certainly a proteinaceous cyst and as such does not warrant specific additional follow-up. There is also a 9 mm simple cyst on the ventral mid right kidney. No worrisome renal masses on either side. No hepatic masses or enlargement. No steatosis. Spleen and adrenals unremarkable. No adenopathy, ascites or pleural effusion. Procedure Note Oleg Neal MD - 01/23/2021 TECHNIQUE: 1.5 Nias scanner. Imaging without and with IV contrast. Compare to CT from [facility] 11/08/2020 FINDINGS: The tail of the pancreas is quite difficult to separate from adjacentcolon on many sequences but there does appear to be a 7 mmwell-circumscribed, bilobed cystic area in the low distal tail. The mainpancreatic duct is so small through the tail that I cannot clearlyidentify it such that it is unclear if this is a side branch IPMN; thereis no pancreatic duct dilatation at any level. No solid pancreatic masses in the area of the cyst or elsewhere. No signs of pancreatitis. Extrahepatic biliary dilatation with the CBD measuring 16 mm as it entersthe head of the pancreas is unchanged. The duct tapers abruptly in theregion of the junction with the pancreatic duct. No identifiable fillingdefects. No intrahepatic biliary dilatation; the extrahepatic dilatationis likely reservoir effect postcholecystectomy. The 9 mm circumscribed lesion bulging exophytically from the ventral midleft kidney noted on the CT scan is hyperintense on T1 and T2 and does notappear to enhance significantly. This is almost certainly a proteinaceouscyst and as such does not warrant specific additional follow-up. There is also a 9 mm simple cyst on the ventral mid right kidney. No worrisome renal masses on either side. No hepatic masses or enlargement. No steatosis. Spleen and adrenals unremarkable. No adenopathy, ascites or pleural effusion. IMPRESSION: 1. 7 mm bilobed cyst in the tail the pancreas, possibly IPMN. Follow-upinitially in 6 months recommended. 2. Left upper pole renal lesion appears to be a proteinaceous cyst. Nospecific follow-up considered necessary (but can be reevaluated on thefollow-up pancreatic MRI). 3. Extrahepatic biliary dilatation very likely due to cholecystectomyrather than obstruction. 4. No other significant upper abdominal pathology. POS [id number] Marco A Garcia MD IMG MR ABDOMEN Final Result documented in this encounter Visit Diagnoses Diagnosis Cyst of pancreas- Primary Cyst and pseudocyst of pancreas Cyst of pancreas Cyst and pseudocyst of pancreas documented in this encounter Care Teams Organic Chemistry Professor Relationship Specialty Start Date End Date Marco A Ortega MD [address] [facility] [address] [place] [address] PCP - General Family Medicine 10/25/20 08/18/24 Leandra Gonzalez PA [address] [place] [phone] [email or web address] PCP - General Physician Corrosion Control Technician 08/19/24 documented as of this encounter Additional Source Comments The information contained in this document represents components of the legal health record. It is not the complete legal health record.[facility]
--- OUTSIDE RECORDS SUMMARY | 2024-10-25 12:31 | XMS_ITS | Encounter Summary ---
Author Organization [facility] Address [address] [facility] [address] [place] [address] Phone Care Team Providers Care Ballistics Laboratory Gunsmith Name Role Phone Andrew Lopes MD Primary Care Provider [phone] Andrew Lopes MD Primary Care Provider [phone] Renaldo Gray DO Primary Care Provider [phone] Joseph Bhandari MD Primary Care Provider [phone] Marco A Ortega MD Primary Care Provide r Leandra Gonzalez Primary Care Provider [phone] Encounter Details Date Type Department Care Team (Late st Contact Info) Description 05/06/2017 Procedure Pass [facility], [address] [address] Social History Tobacco Use Types Packs/Day Years [...] on filedocumented in this encounter Care Teams Ballistics Laboratory Gunsmith Relationship Specialty Start Date [place] [address] [email or web address] PCP - General Internal Medicine 03/03/17 11/25/18 [place] [address] [email or web address] PCP - General Internal Medicine 11/26/18 10/12/19 Renaldo Gray DO [address] [place] [address] [email or web address] PCP - General Family Medicine 10/13/19 05/31/20 Joseph Bhandari MD [address] [address] [email or web address] PCP - General 06/01/20 10/24/20 [place] [address] [address] PCP - General Family Medicine 10/25/20 08/18/24 Leandra Gonzalez PA [address] [place] [address] [email or web address] PCP - General Physician Accounting Systems Manager 08/19/24 documented as of this encounter Additional Source Comments The information contained in this document represents components of the legal health record. It is not the complete legal health record.[facility]
--- OUTSIDE RECORDS SUMMARY | 2024-10-25 12:31 | XMS_ITS | Encounter Summary ---
Author Organization [facility] Address [address] [facility] [address] [place] [address] Phone Care Team Providers Care Supplier Quality Name Role Phone Andrew Lopes MD Primary Care Provider Renaldo Gray DO Primary Care Provider [phone] Joseph Bhandari MD Primary Care Provider [phone] Marco A Ortega MD Primary Care Provide r Leandra Gonzalez Primary Care Provider [phone] Reason for Referral * MRI/CAT Scan - Closed Specialty Diagnoses / Procedures Referred By Benjamin gunn Referred To Contact Radiology Diagnoses Hemiparesis, unspecified hemiparesis etiology, unspecified laterality Anesthesia of skin Procedures MRI Brain Renaldo Gray DO Phone: tel: fax: [email or web address] Referral ID Status Reason Start Date Expiration Date Visits Re quested Visits Authorized [id number] Closed 10/12/2019 04/09/2020 1 1 Encounter Details Date Type Department Care Team (Latest Contact Info) Description 10/12/2019 Transcribe Orders [facility] Department [address] [place] [address] [place] [address] [email or web address] Hemiparesis, unspecified hemiparesis etiology, unspecified laterality (Primary Dx); Anesthesia of skin Social History Tobacco Use Types Packs/Day Years [...] as of this encounter Results * MRI BRAIN WITHOUT CONTRAST (10/19/2019 10:21 PM EDT) Anatomical Region Laterality Modality Head Magnetic Resonan ce 10/20/2019 8:50 AM EDT Impressions 10/20/2019 8:58 AM EDT No significant interval change in small non-specific white matter signal abnormalities, not strongly suggestive of a demyelinating process, since 2018. No evidence of acute ischemia or mass. POS [id number] Narrative 10/20/2019 8:58 AM EDT TECHNIQUE: Exam performed on a 1.5 Nisa high-field MRI scanner. Axial T1, T2, T2 FLAIR, T2 GRE, and diffusion-weighted imaging with ADC map, sagittal T1 and T2 FLAIR sequences were obtained. FINDINGS: Comparison is made with prior MR of 05/01/2017. There is no evidence of intracranial hemorrhage, acute ischemia, or mass. Scattered non-specific foci of T2 hyperintensity in the periventricular white matter are again seen, similar in overall number although there has been minimal waxing and waning of conspicuity of a few of the lesions. No clearly enlarging or new lesions are confirmed. Ventricles and cerebral sulci are stable in size. No pathologic extra-axial fluid collections have developed. No gross orbital lesion or advanced paranasal sinus inflammatory changes have developed. Normal flow-voids appear to be preserved in the major intracranial arteries at the base. Small intraparotid lymph nodes are grossly stable. Procedure Note Davide Bingham MD - 10/20/2019 TECHNIQUE: Exam performed on a 1.5 Nisa high-field MRI scanner. AxialT1, T2, T2 FLAIR, T2 GRE, and diffusion-weighted imaging with ADC map,sagittal T1 and T2 FLAIR sequences were obtained. FINDINGS: Comparison is made with prior MR of 05/01/2017. There is no evidence ofintracranial hemorrhage, acute ischemia, or mass. Scattered non-specificfoci of T2 hyperintensity in the periventricular white matter are againseen, similar in overall number although there has been minimal waxing andwaning of conspicuity of a few of the lesions. No clearly enlarging or newlesions are confirmed. Ventricles and cerebral sulci are stable in size.No pathologic extra-axial fluid collections have developed. No grossorbital lesion or advanced paranasal sinus inflammatory changes havedeveloped. Normal flow-voids appear to be preserved in the majorintracranial arteries at the base. Small intraparotid lymph nodes aregrossly stable. IMPRESSION: No significant interval change in small non-specific white matter signalabnormalities, not strongly suggestive of a demyelinating process, [id number]. No evidence of acute ischemia or mass. POS [id number] Renaldo Gray DO IM MR HEAD/NECK Final Result documented in this encounter Visit Diagnoses Diagnosis Hemiparesis, unspecified hemiparesis etiology, unspecified laterality- Primary Anesthesia of skin Disturbance of skin sensation Hemiparesis, unspecified hemiparesis etiology, unspecified laterality Anesthesia of skin Disturbance of skin sensation documented in this encounter Care Teams Supplier Quality Relationship Specialty Start Date [place] [address] PCP - General Internal Medicine 11/26/18 10/12/19 Renaldo Gray DO [address] [place] [address] [email or web address] PCP - General Family Medicine 10/13/19 05/31/20 Joseph Bhandari MD [address] [facility] [address] [place] [address] [email or web address] PCP - General 06/01/20 10/24/20 Marco A Ortega MD [address] [address] PCP - General Family Medicine 10/25/20 08/18/24 Leandra Gonzalez PA [address] [place] [address] [email or web address] PCP - General Physician Fire Prevention Bureau Captain 08/19/24 documented as of this encounter Additional Source Comments The information contained in this document represents components of the legal health record. It is not the complete legal health record.[facility]
--- OUTSIDE RECORDS SUMMARY | 2024-10-25 12:31 | XMS_ITS | Encounter Summary ---
Author Organization [facility] Address [address] [facility] [address] [place] [address] Phone Care Team Providers Care Lawn Care Technician Name Role Phone Andrew Lopes MD Primary Care Provider [phone] Andrew Lopes MD Primary Care Provider [phone] Renaldo Gray DO Primary Care Provider [phone] Joseph Bhandari MD Primary Care Provider [phone] Marco A Ortega MD Primary Care Provide r Leandra Gonzalez Primary Care Provider [phone] Reason for Referral * MRI/CAT Scan - Closed Specialty Diagnoses / Procedures Referred By Contac t Referred To Contact Radiology Diagnoses Cerebral arteriosclerosis White matter disease Procedures MRI Brain Andrew Lopes MD Phone: tel: fax: [email or web address] Referral ID Status Reason Start Date Expiration Date Visits Re quested Visits Authorized [id number] Closed 04/30/2017 06/29/2017 1 1 Encounter Details Date Type Department Care Team (Late st Contact Info) Description 04/30/2017 Ancillary Orders [facility] Department [address] [place] [address] [place] [address] [phone] (work) [email or web address] Cerebral arteriosclerosis; White matter disease Social History Tobacco Use Types Packs/Day Years [...] encounter Results * MRI BRAIN WITHOUT CONTRAST (05/01/2017 5:57 PM EST) Anatomical Region Laterality Modality Head Magnetic Resonan ce 05/01/2017 6:04 PM EST Impressions 05/01/2017 6:21 PM EST No clear progression in white matter changes previously noted. Similar number of lesions and size of lesions to prior exam of 2017. No mass, hemorrhage, or infarction is detected. POS - [id number] Edited by: Kayleen Reyes on 05/01/2017 6:20 PM Narrative 05/01/2017 6:21 PM EST HISTORY: Left extremity weakness and numbness. White matter disease. Cerebral atherosclerotic change. COMPARISON: July 26, 2016. TECHNIQUE: Exam performed on a 1.5 Nisa high-field MRI scanner. Axial T1, T2, T2*, T2 FLAIR and diffusion-weighted imaging with ADC map, sagittal T1 and T2 FLAIR sequences were obtained. FINDINGS: Scattered white matter lesions in the supratentorial subcortical white matter tracts appear largely unchanged. One area at the right insular region appears slightly less pronounced. No clearly new lesions are seen. No lesions within the corpus callosum or typical of MS-type demyelination about the corpus callosum are currently apparent. No abnormal intra or extra-axial blood or fluid collection, mass, or mass effect is identified. No areas of restricted diffusion are identified. No worrisome areas of susceptibility effect. Mild frontal and ethmoid sinus mucosal thickening noted. No fluid. No gross orbital lesion. There appear to be preserved flow voids in the major intracranial arteries and veins. No hydrocephalus or prominent volume loss. Pituitary not enlarged. Cerebellar tonsils not ectopic. Mildly heterogeneous marrow signal but no worrisome interval change or marked T1 marrow suppression is seen. Procedure Note Mechelle Collins MD - 05/01/2017 HISTORY: Left extremity weakness and numbness. White matter disease.Cerebral atherosclerotic change. COMPARISON: July 26, 2016. TECHNIQUE: Exam performed on a 1.5 Nisa high-field MRI scanner. AxialT1, T2, T2*, T2 FLAIR and diffusion-weighted imaging with ADC map,sagittal T1 and T2 FLAIR sequences were obtained. FINDINGS: Scattered white matter lesions in the supratentorial subcortical whitematter tracts appear largely unchanged. One area at the right insularregion appears slightly less pronounced. No clearly new lesions are seen.No lesions within the corpus callosum or typical of MS-type demyelinationabout the corpus callosum are currently apparent. No abnormal intra or extra-axial blood or fluid collection, mass, or masseffect is identified. No areas of restricted diffusion are identified.No worrisome areas of susceptibility effect. Mild frontal and ethmoidsinus mucosal thickening noted. No fluid. No gross orbital lesion.There appear to be preserved flow voids in the major intracranial arteriesand veins. No hydrocephalus or prominent volume loss. Pituitary notenlarged. Cerebellar tonsils not ectopic. Mildly heterogeneous marrowsignal but no worrisome interval change or marked T1 marrow suppression isseen. IMPRESSION: No clear progression in white matter changes previously noted. Similarnumber of lesions and size of lesions to prior exam of 2017. No mass,hemorrhage, or infarction is detected. POS - [id number] Edited by: Kayleen Reyes on 05/01/2017 6:20 PM Andrew Lopes MD IMG MR HEAD/NECK Final Resu lt documented in this encounter Visit Diagnoses Diagnosis Cerebral arteriosclerosis Cerebral atherosclerosis White matter disease Cerebral arteriosclerosis Cerebral atherosclerosis White matter disease documented in this encounter Care Teams Lawn Care Technician Relationship Specialty Start Date End [place] [address] [email or web address] PCP - General Internal Medicine 03/03/17 11/25/18 [place] [address] [email or web address] PCP - General Internal Medicine 11/26/18 10/12/19 Renaldo Gray DO [address] [place] [address] [email or web address] PCP - General Family Medicine 10/13/19 05/31/20 Joseph Bhandari MD [address] [place] [address] [email or web address] PCP - General 06/01/20 10/24/20 Marco A Ortega MD [address] [address] PCP - General Family Medicine 10/25/20 08/18/24 Leandra Gonzalez PA [address] [place] [phone] [email or web address] PCP - General Physician Multiple Tube Winding Machine Operator 08/19/24 documented as of this encounter Additional Source Comments The information contained in this document represents components of the legal health record. It is not the complete legal health record.[facility]
--- OUTSIDE RECORDS SUMMARY | 2024-10-25 12:31 | XMS_ITS | Encounter Summary ---
Author Organization [facility] Address [address] [address] Phone Care Team Providers Care Fat Purification Worker Name Role Phone Marco A Ortega MD Primary Care Provide r Leandra Gonzalez Primary Care Provider [phone] Encounter Details Date Type Department Care Team ([facility] st Contact Info) Description 01/04/2021 Procedure Pass [facility], [address] [address] Social History Tobacco Use Types Packs/Day Years Used Date Smoking Tobacco: Every Day Smokeless Tobacco: Never Alcohol Use Standard Drinks/Week Comments No 0 (1 standard drink = 0.6 oz pur e alcohol) Comments No Sex and Gender Information Value [...] on filedocumented in this encounter Care Teams Fat Purification Worker Relationship Specialty Start Date End Date Marco A Ortega MD [address] [facility] [address] [place] [address] PCP - General Family Medicine 10/25/20 08/18/24 Leandra Gonzalez PA [address] [place] [phone] [email or web address] PCP - General Physician Kennel Manager Dog Track 08/19/24 documented as of this encounter Additional Source Comments The information contained in this document represents components of the legal health record. It is not the complete legal health record.[facility]
[2024-10-25 12:41] LABS: Alanine Aminotransferase 16 U/L (0-31); Albumin Level 4.6 g/dL (3.5-5.0); Alkaline Phosphatase 85 U/L (39-117); Anion Gap 11 (12-20); Aspartate Amino Transferase 21 U/L (5-31); Blood Urea Nitrogen 18 mg/dL (9-16); Calcium 9.4 mg/dL (8.4-10.2); Carbon Dioxide 29 mmol/L (22-29); Chloride 107 mmol/L (96-108); Creatinine Clr Calc Pharmacy 72.4; Estimated Glomerular Filt Rate > 60; Potassium 3.4 mmol/L (3.3-5.1); Sodium 144 mmol/L (135-145); Total Protein 6.8 g/dL (6.5-8.0)
[2024-10-25 13:47] VITALS: BP 133/63; PULSE 80; RESP 18; O2SAT 96
[2024-10-25 14:32] LABS: Appearance Urine Clear; Glucose Urine UA Negative (Negative); PH 7.5 (5.0-9.0); Specific Gravity - Urine <= 1.005 (1.005-1.025); UMIC TRIGGER UACC YES
[2024-10-25 14:48] VITALS: BP 133/63; PULSE 80; RESP 18; TEMP -17.7; TEMP 0; O2SAT 96
== END 2024-10-25 14:49 | disposition home or self-care (01) ==
PROVIDERS: Physician Assistant; Emergency Provider Emergency Medicine; PCP Physician Assistant
DX: M25.552 Pain in left hip (principal); M16.12 Unilateral primary osteoarthritis, left hip; M79.605 Pain in left leg
CPT/HCPCS: 36415; 73502; 80053; 81001; 82550; 85025; 93971; 99284

== ENCOUNTER → 2024-10-25 12:12 | Outpatient (BNV) | payer OTHER, SELFPAY | PROVIDERS: Emergency Provider Emergency Medicine; PCP Physician Assistant; Visit Provider Family Medicine | DX: M25.552 Pain in left hip (principal); M79.652 Pain in left thigh | CPT/HCPCS: 73502; 93971 ==